=== PATIENT | female | born 1960 | race African-American/Black ===

== ENCOUNTER 2020-12-28 10:40 | Emergency (ER) | payer OTHER ==
[~2020-12-28] VITALS: Ht 172.7 cm; Wt 99.0 kg
[2020-12-28 13:58] LABS: HEMATOCRIT. 33.9 % (36.0-48.0); HEMOGLOBIN. 11.8 g/dL (12.0-16.0); MEAN CORPUSCULAR HEMOGLOBIN 27.7 pg (28.0-32.0); MEAN CORPUSCULAR VOLUME 79.6 fL (81.0-99.0); MEAN PLATELET VOLUME 8.2 fl (7.4-10.4); PLATELET 301 x1000/uL (130-400); RED BLOOD CELL COUNT 4.26 mill/uL (4.2-5.4); RED CELL DISTRIBUTION WIDTH 13.8 % (11.6-14.6)
[2020-12-28 14:04] LABS: CHLORIDE 103 mEq/L (98-107)
[2020-12-28 14:12] LABS: CLARITY URINE CLEAR (CLEAR); COLOR URINE YELLOW (YELLOW); KETONES URINE NEGATIVE (NEGATIVE); LEUKOCYTE ESTERASE URINE NEGATIVE (NEGATIVE); NITRITE URINE NEGATIVE (NEGATIVE); OCCULT BLOOD URINE NEGATIVE (NEGATIVE); PROTEIN URINE NEGATIVE (NEGATIVE); SPECIFIC GRAVITY URINE 1.014 (1.005-1.030); UROBILINOGEN URINE 0.2 E.U./dL (0.2-1.0)
[2020-12-28 14:27] LABS: PLATELET ESTIMATE NORMAL
[2020-12-28] MEDS ORDERED: POTASSIUM CHLORIDE 20MEQ TABLET SR PO ONE (15:00)
[2020-12-28 15:51] LABS: PARTIAL THROMBOPLASTIN TIME 28.8 sec (23.4-31.0); PROTHROMBIN TIME 10.9 sec (9.6-11.0)
[2020-12-28] MEDS ORDERED: AZITHROMYCIN 500 MG in DEXT 5% WATER 250 ML IV ONE (16:00)
[2020-12-28] MEDS ORDERED: CEFTRIAXONE 2 G PREMIX 50 ML IV ONE (16:00)
[2020-12-28 19:00] VITALS: BP 140/65
== END 2020-12-28 19:58 | disposition short-term general hospital (02) ==
LOC: ER 10:50
DX: J18.9 Pneumonia, unspecified organism (principal); E87.6 Hypokalemia; R91.8 Other nonspecific abnormal finding of lung field; I10 Essential (primary) hypertension; Z20.822 Contact with and (suspected) exposure to COVID-19
CPT/HCPCS: 36415; 71045; 71260; 80053; 81003; 83880; 84484; 85025; 85610; 85730; 87040; 87086; 93005; 96365; 96366; 96368; 99285; C9803; J0456; J0696; J7060; U0003; U0005

== ENCOUNTER 2021-12-31 10:18 | Inpatient (IN) | payer MEDICAID, OTHER ==
[~2021-12-31] VITALS: Ht 172.7 cm; Wt 110.2 kg
[2021-12-31] MEDS ORDERED: ALBUTEROL (0.083%) 2.5MG/3ML NEB HHN STA (10:47)
[2021-12-31 11:03] LABS: BASOPHILS % 0.8 % (0.0-2.0); EOSINOPHILS % 2.6 % (0.0-5.0); HEMATOCRIT. 44.5 % (36.0-48.0); HEMOGLOBIN. 14.6 g/dL (12.0-16.0); LYMPHOCYTES % 27.7 % (20.0-50.0); MEAN CORPUSCULAR HEMOGLOBIN 25.4 pg (28.0-32.0); MEAN CORPUSCULAR VOLUME 77.5 fL (81.0-99.0); MEAN PLATELET VOLUME 7.9 fl (7.4-10.4); MONOCYTES % 8.9 % (2.0-8.0); PLATELET 366 x1000/uL (130-400); RED BLOOD CELL COUNT 5.74 mill/uL (4.2-5.4); RED CELL DISTRIBUTION WIDTH 15.9 % (11.6-14.6)
[2021-12-31] MEDS ORDERED: AZITHROMYCIN 500MG/250ML 250 ML IV ONE (11:30)
[2021-12-31] MEDS ORDERED: CEFTRIAXONE 1 G PREMIX 50 ML IV ONE (11:30)
[2021-12-31 11:35] LABS: CHLORIDE 106 mEq/L (98-107)
[2021-12-31 11:46] LABS: BG BASE EXCESS 1.8 mmol/L (-2.0-2.0); BG CARBOXYHEMOGLOBIN 0.8 % (0.5-1.5); BG DEOXYHEMOGLOBIN 6.9 % (0.0-5.0); BG FRACTION INSPIRED OXYGEN 44; BG HCO3 ACT 26.8 mmol/L (22.0-26.0); BG METHEMOGLOBIN 0.3 % (0.0-1.5); BG PCO2 43.1 mmHg (35.0-45.0); BG PH 7.411 (7.350-7.450); BG SAMPLE SITE RIGHT BRACHIAL; BG TOTAL HEMOGLOBIN 15.1 g/dL (12.0-18.0); BG VENT MODE NASAL CANNULA
[2021-12-31 13:27] LABS: CLARITY URINE CLEAR (CLEAR); COLOR URINE YELLOW (YELLOW); KETONES URINE NEGATIVE (NEGATIVE); LEUKOCYTE ESTERASE URINE NEGATIVE (NEGATIVE); NITRITE URINE NEGATIVE (NEGATIVE); OCCULT BLOOD URINE NEGATIVE (NEGATIVE); PROTEIN URINE NEGATIVE (NEGATIVE); SPECIFIC GRAVITY URINE 1.008 (1.005-1.030); UROBILINOGEN URINE 0.2 E.U./dL (0.2-1.0)
[2021-12-31 16:10] VITALS: BP 134/88
[2021-12-31] MEDS ORDERED: CEFTRIAXONE 1 G PREMIX 50 ML IV SCH (16:30)
[2021-12-31] MEDS ORDERED: IPRATROPIUM/ALBUTEROL 0.5-3(2.5)MG/3ML NEB HHN PRN (16:30)
[2021-12-31 16:35] VITALS: BP 134/88
[2021-12-31] MEDS ORDERED: CEFTRIAXONE 1,000 MG in DEXTROSE 5% WATER 50 ML IV SCH (17:00)
[2021-12-31] MEDS ORDERED: AMLO10TA80 PO (17:35)
[2021-12-31] MEDS ORDERED: ATEN-42 PO (17:35)
[2021-12-31] MEDS ORDERED: IOHEXOL-300 100 ML BOTTLE ONE (20:02)
[2022-01-01] VITALS: BP 142/79
[2022-01-01 04:00] VITALS: BP 132/51
[2022-01-01 07:59] VITALS: BP 131/62
[2022-01-01] MEDS: AMLODIPINE 10MG TABLET PO SCH (08:38)
[2022-01-01] MEDS: ATENOLOL 25MG TABLET PO SCH (08:39)
[2022-01-01] MEDS: AZITHROMYCIN 500 MG in DEXT 5% WATER 250 ML IV SCH (10:39)
[2022-01-01 11:46] VITALS: BP 135/68
[2022-01-01] MEDS: CEFTRIAXONE 1,000 MG in DEXTROSE 5% WATER 50 ML IV SCH (12:46)
[2022-01-01] MEDS ORDERED: IPRATROPIUM/ALBUTEROL 0.5-3(2.5)MG/3ML NEB HHN PRN (14:30)
[2022-01-01] MEDS ORDERED: SODIUM CHLORIDE 10% FOR INH 15ML VIAL NEB INH SCH (15:00)
[2022-01-01 16:00] VITALS: BP 132/74
[2022-01-01 20:00] VITALS: BP 128/73
[2022-01-01 20:22] LABS: PROTHROMBIN TIME 10.9 sec (9.6-11.0)
[2022-01-01] MEDS: IPRATROPIUM/ALBUTEROL 0.5-3(2.5)MG/3ML NEB HHN SCH (21:15)
[2022-01-01] MEDS: GUAIFENESIN 600MG ER TABLET PO SCH (21:54)
[2022-01-01] MEDS: FLUTICASONE PROPIONATE 50MCG/SPRAY BOTTLE BOTHNSTRLS SCH (22:01)
[2022-01-02] VITALS: BP 108/63
[2022-01-02] MEDS: IPRATROPIUM/ALBUTEROL 0.5-3(2.5)MG/3ML NEB HHN SCH ×4 (02:16→20:57)
[2022-01-02 04:00] VITALS: BP 105/39
[2022-01-02 08:00] VITALS: BP 128/61
[2022-01-02] MEDS: GUAIFENESIN 600MG ER TABLET PO SCH (10:46)
[2022-01-02] MEDS: FLUTICASONE PROPIONATE 50MCG/SPRAY BOTTLE BOTHNSTRLS SCH ×2 (10:46→20:31)
[2022-01-02] MEDS: AMLODIPINE 10MG TABLET PO SCH (10:47)
[2022-01-02] MEDS: ATENOLOL 25MG TABLET PO SCH (10:48)
[2022-01-02 12:00] VITALS: BP 119/67
[2022-01-02] MEDS: AZITHROMYCIN 500 MG in DEXT 5% WATER 250 ML IV SCH (12:46)
[2022-01-02] MEDS: CEFTRIAXONE 1,000 MG in DEXTROSE 5% WATER 50 ML IV SCH (14:46)
[2022-01-02 16:00] VITALS: BP 116/65
[2022-01-02 20:00] VITALS: BP 119/63
[2022-01-03] VITALS (7 sets, daily range): BP systolic 106–143; BP diastolic 44–76
[2022-01-03] MEDS: ACETAMINOPHEN 325MG TABLET PO PRN ×2 (02:22→18:07)
[2022-01-03] MEDS: ACETYLCYSTEINE 100MG/ML 10% VIAL 4ML INH SCH ×3 (02:55→16:27)
[2022-01-03] MEDS: IPRATROPIUM/ALBUTEROL 0.5-3(2.5)MG/3ML NEB HHN SCH ×5 (02:57→20:19)
[2022-01-03] MEDS: ATENOLOL 25MG TABLET PO SCH (09:20)
[2022-01-03] MEDS: AMLODIPINE 10MG TABLET PO SCH (09:21)
[2022-01-03] MEDS: FLUTICASONE PROPIONATE 50MCG/SPRAY BOTTLE BOTHNSTRLS SCH ×2 (09:21→21:52)
[2022-01-03] MEDS: AZITHROMYCIN 500 MG in DEXT 5% WATER 250 ML IV SCH (12:28)
[2022-01-03] MEDS: CEFTRIAXONE 1,000 MG in DEXTROSE 5% WATER 50 ML IV SCH (14:01)
[2022-01-03 17:01] LABS: BASOPHILS % 0.6 % (0.0-2.0); EOSINOPHILS % 2.9 % (0.0-5.0); HEMATOCRIT. 44.8 % (36.0-48.0); HEMOGLOBIN. 14.4 g/dL (12.0-16.0); LYMPHOCYTES % 24.9 % (20.0-50.0); MEAN CORPUSCULAR HEMOGLOBIN 25.3 pg (28.0-32.0); MEAN CORPUSCULAR VOLUME 78.8 fL (81.0-99.0); MONOCYTES % 8.5 % (2.0-8.0); NEUTROPHILS % 63.1 % (40.0-76.0); PLATELET 319 x1000/uL (130-400); RED BLOOD CELL COUNT 5.69 mill/uL (4.2-5.4); RED CELL DISTRIBUTION WIDTH 15.4 % (11.6-14.6)
[2022-01-03 17:24] LABS: CHLORIDE 103 mEq/L (98-107)
[2022-01-03] MEDS: ZOLPIDEM TARTRATE 5MG TABLET PO PRN (23:46)
[2022-01-04] MEDS: ACETYLCYSTEINE 100MG/ML 10% VIAL 4ML INH SCH ×2 (01:01→01:08)
[2022-01-04] MEDS: IPRATROPIUM/ALBUTEROL 0.5-3(2.5)MG/3ML NEB HHN SCH ×4 (01:04→20:50)
[2022-01-04 04:30] VITALS: BP 119/61
[2022-01-04 08:11] VITALS: BP 127/77
[2022-01-04] MEDS: AMLODIPINE 10MG TABLET PO SCH (09:00)
[2022-01-04] MEDS: ATENOLOL 25MG TABLET PO SCH (09:00)
[2022-01-04] MEDS: AZITHROMYCIN 500 MG in DEXT 5% WATER 250 ML IV SCH (10:00)
[2022-01-04] MEDS: FLUTICASONE PROPIONATE 50MCG/SPRAY BOTTLE BOTHNSTRLS SCH (10:03)
[2022-01-04 12:00] VITALS: BP 125/70
[2022-01-04 16:00] VITALS: BP 120/72
[2022-01-04] MEDS: CEFTRIAXONE 1,000 MG in DEXTROSE 5% WATER 50 ML IV SCH (16:33)
[2022-01-04] MEDS: ACETAMINOPHEN 325MG TABLET PO PRN ×2 (18:48→22:16)
[2022-01-04 20:00] VITALS: BP 131/81
[2022-01-04] MEDS: ZOLPIDEM TARTRATE 5MG TABLET PO PRN (22:16)
[2022-01-05] VITALS (27 sets, daily range): BP systolic 101–168; BP diastolic 51–91
[2022-01-05 06:41] LABS: PARTIAL THROMBOPLASTIN TIME 29.6 sec (23.4-31.0); PROTHROMBIN TIME 10.9 sec (9.6-11.0)
[2022-01-05 06:58] LABS: BASOPHILS % 0.5 % (0.0-2.0); EOSINOPHILS % 3.9 % (0.0-5.0); HEMATOCRIT. 40.2 % (36.0-48.0); HEMOGLOBIN. 13.1 g/dL (12.0-16.0); MEAN CORPUSCULAR HEMOGLOBIN 25.5 pg (28.0-32.0); MEAN CORPUSCULAR VOLUME 78.2 fL (81.0-99.0); MONOCYTES % 10.7 % (2.0-8.0); NEUTROPHILS % 57.9 % (40.0-76.0); PLATELET 300 x1000/uL (130-400); RED BLOOD CELL COUNT 5.14 mill/uL (4.2-5.4); RED CELL DISTRIBUTION WIDTH 15.1 % (11.6-14.6)
[2022-01-05 07:18] LABS: CHLORIDE 106 mEq/L (98-107)
[2022-01-05] MEDS: ACETAMINOPHEN 325MG TABLET PO PRN (07:42)
[2022-01-05] MEDS: IPRATROPIUM/ALBUTEROL 0.5-3(2.5)MG/3ML NEB HHN SCH ×4 (08:17→20:23)
[2022-01-05] MEDS: ACETYLCYSTEINE 100MG/ML 10% VIAL 4ML INH SCH ×2 (08:17→15:00)
[2022-01-05] MEDS: AMLODIPINE 10MG TABLET PO SCH (09:00)
[2022-01-05] MEDS: ATENOLOL 25MG TABLET PO SCH (09:00)
[2022-01-05] MEDS ORDERED: POLYMYXIN B SULFATE 500000 UNITS/VIAL ONE (12:26)
[2022-01-05] MEDS ORDERED: BUPIVACAINE HCL/PF 0.5% (5MG/ML) 10ML ONE (12:27)
[2022-01-05] MEDS: CEFTRIAXONE 1,000 MG in DEXTROSE 5% WATER 50 ML IV SCH (13:12)
[2022-01-05] MEDS ORDERED: SKIN ADHESIVE 0.7 GM EA TOP ONE (13:49)
[2022-01-05] MEDS ORDERED: BUPIVACAINE HCL/PF 0.25% (2.5MG/ML) 10ML ONE (13:50)
[2022-01-05] MEDS ORDERED: ONDANSETRON HCL 4MG/2ML INJ ONE (14:45)
[2022-01-05] MEDS ORDERED: ROCURONIUM BROMIDE 10MG/ML VIAL 5ML IV ONE (14:45)
[2022-01-05] MEDS ORDERED: SUCCINYLCHOLINE CHLORIDE 200MG/10ML IV ONE (14:45)
[2022-01-05] MEDS ORDERED: DEXAMETHASONE 4MG/ML 1ML VIAL ONE (14:45)
[2022-01-05] MEDS ORDERED: LIDOCAINE HCL 1% 10 MG/ML 10ML VIAL ONE (14:45)
[2022-01-05] MEDS ORDERED: PROPOFOL 200MG/20ML VIAL IV ONE (14:46)
[2022-01-05] MEDS ORDERED: NEOSTIGMINE METHYLSULFATE 1MG/ML 10 ML VIAL ONE (14:46)
[2022-01-05] MEDS ORDERED: GLYCOPYRROLATE 0.2 MG/ML 2ML VIAL ONE ×2 (14:46)
[2022-01-05] MEDS ORDERED: FENTANYL CITRATE/PF 50MCG/ML 2ML VIAL ONE (14:47)
[2022-01-05] MEDS ORDERED: MIDAZOLAM HCL 2 MG/2 ML VIAL ONE (14:47)
[2022-01-05] MEDS: PROPOFOL 10MG/ML 100ML 100 ML IV PRN ×2 (16:17→21:24)
[2022-01-05 17:07] LABS: BG CARBOXYHEMOGLOBIN 0.2 % (0.5-1.5); BG DEOXYHEMOGLOBIN 0.6 % (0.0-5.0); BG FRACTION INSPIRED OXYGEN 100; BG HCO3 ACT 20.9 mmol/L (22.0-26.0); BG METHEMOGLOBIN 0.1 % (0.0-1.5); BG OXYGEN SATURATION 99.4 % (92.0-98.5); BG OXYHEMOGLOBIN 99.1 % (94.0-97.0); BG PCO2 37.7 mmHg (35.0-45.0); BG PH 7.362 (7.350-7.450); BG PO2 223.7 mmHg (75.0-100.0); BG SAMPLE SITE LEFT RADIAL; BG TOTAL HEMOGLOBIN 14.4 g/dL (12.0-18.0); BG VENT MODE VENT - AC
[2022-01-05] MEDS: METHYLPREDNISOLONE SOD SUCC 125 MG/2 ML VIAL IV SCH (21:09)
[2022-01-05] MEDS: DEXT 5%/0.45% NACL KCL 20MEQ/L 1,000 ML IV SCH (21:09)
[2022-01-05] MEDS ORDERED: FENTANYL 2500MCG/250ML PMX 250 ML IV ONE (22:45)
[2022-01-06] VITALS (91 sets, daily range): BP systolic 102–160; BP diastolic 50–86
[2022-01-06] MEDS: PROPOFOL 10MG/ML 100ML 100 ML IV PRN ×6 (01:05→22:08)
[2022-01-06] MEDS: ACETYLCYSTEINE 100MG/ML 10% VIAL 4ML INH SCH ×3 (02:15→14:44)
[2022-01-06] MEDS: IPRATROPIUM/ALBUTEROL 0.5-3(2.5)MG/3ML NEB HHN SCH ×4 (02:15→19:48)
[2022-01-06] MEDS: DEXT 5%/0.45% NACL KCL 20MEQ/L 1,000 ML IV SCH ×2 (06:48→17:22)
[2022-01-06] MEDS: METHYLPREDNISOLONE SOD SUCC 125 MG/2 ML VIAL IV SCH ×3 (06:49→21:31)
[2022-01-06] MEDS: AMLODIPINE 10MG TABLET PO SCH (08:41)
[2022-01-06] MEDS: ATENOLOL 25MG TABLET PO SCH (08:42)
[2022-01-06 08:50] LABS: BG BASE EXCESS -3.4 mmol/L (-2.0-2.0); BG CARBOXYHEMOGLOBIN 0.2 % (0.5-1.5); BG DEOXYHEMOGLOBIN 6.8 % (0.0-5.0); BG FRACTION INSPIRED OXYGEN 50; BG HCO3 ACT 22.6 mmol/L (22.0-26.0); BG METHEMOGLOBIN 0.3 % (0.0-1.5); BG OXYGEN SATURATION 93.2 % (92.0-98.5); BG OXYHEMOGLOBIN 92.7 % (94.0-97.0); BG PH 7.328 (7.350-7.450); BG PO2 72.9 mmHg (75.0-100.0); BG SAMPLE SITE LEFT RADIAL; BG TOTAL HEMOGLOBIN 12.8 g/dL (12.0-18.0); BG VENT MODE VENT - AC
[2022-01-06] MEDS ORDERED: DILTIAZEM HCL 5MG/ML 5ML VIAL IV PRN (12:00)
[2022-01-06] MEDS: CEFTRIAXONE 1,000 MG in DEXTROSE 5% WATER 50 ML IV SCH (12:36)
[2022-01-06 18:30] LABS: HEMATOCRIT. 39.3 % (36.0-48.0); HEMOGLOBIN. 12.7 g/dL (12.0-16.0); MEAN CORPUSCULAR HEMOGLOBIN 25.3 pg (28.0-32.0); MEAN CORPUSCULAR VOLUME 78.6 fL (81.0-99.0); MEAN PLATELET VOLUME 8.2 fl (7.4-10.4); PLATELET 295 x1000/uL (130-400); RED CELL DISTRIBUTION WIDTH 15.5 % (11.6-14.6)
[2022-01-06 18:43] LABS: CHLORIDE 105 mEq/L (98-107)
[2022-01-06 23:12] LABS: PLATELET ESTIMATE NORMAL
[2022-01-07] VITALS (76 sets, daily range): BP systolic 117–158; BP diastolic 51–110
[2022-01-07] MEDS: ACETYLCYSTEINE 100MG/ML 10% VIAL 4ML INH SCH ×4 (02:03→20:38)
[2022-01-07] MEDS: IPRATROPIUM/ALBUTEROL 0.5-3(2.5)MG/3ML NEB HHN SCH ×4 (02:03→20:38)
[2022-01-07] MEDS: DEXT 5%/0.45% NACL KCL 20MEQ/L 1,000 ML IV SCH ×2 (03:08→12:02)
[2022-01-07] MEDS: PROPOFOL 10MG/ML 100ML 100 ML IV PRN ×4 (03:09→20:57)
[2022-01-07] MEDS: METHYLPREDNISOLONE SOD SUCC 125 MG/2 ML VIAL IV SCH ×3 (06:38→21:00)
[2022-01-07 07:52] LABS: BG BASE EXCESS -0.1 mmol/L (-2.0-2.0); BG CARBOXYHEMOGLOBIN 0.3 % (0.5-1.5); BG DEOXYHEMOGLOBIN 4.7 % (0.0-5.0); BG FRACTION INSPIRED OXYGEN 50; BG HCO3 ACT 25.4 mmol/L (22.0-26.0); BG METHEMOGLOBIN 0.2 % (0.0-1.5); BG OXYGEN SATURATION 95.3 % (92.0-98.5); BG OXYHEMOGLOBIN 94.8 % (94.0-97.0); BG PCO2 44.6 mmHg (35.0-45.0); BG PH 7.374 (7.350-7.450); BG PO2 79.7 mmHg (75.0-100.0); BG SAMPLE SITE RIGHT RADIAL; BG TOTAL HEMOGLOBIN 13.9 g/dL (12.0-18.0); BG VENT MODE VENT - AC
[2022-01-07] MEDS: ATENOLOL 25MG TABLET PO SCH (08:55)
[2022-01-07] MEDS: AMLODIPINE 10MG TABLET PO SCH (08:55)
[2022-01-07] MEDS: FENTANYL 2500MCG/250ML PMX 250 ML IV PRN (11:46)
[2022-01-07] MEDS: CEFTRIAXONE 1,000 MG in DEXTROSE 5% WATER 50 ML IV SCH (14:52)
[2022-01-08] VITALS (70 sets, daily range): BP systolic 131–187; BP diastolic 63–113
[2022-01-08] MEDS: IPRATROPIUM/ALBUTEROL 0.5-3(2.5)MG/3ML NEB HHN SCH ×3 (01:21→21:19)
[2022-01-08] MEDS: DEXT 5%/0.45% NACL KCL 20MEQ/L 1,000 ML IV SCH ×3 (02:37→18:49)
[2022-01-08] MEDS: PROPOFOL 10MG/ML 100ML 100 ML IV PRN ×4 (02:37→23:01)
[2022-01-08] MEDS: METHYLPREDNISOLONE SOD SUCC 125 MG/2 ML VIAL IV SCH ×3 (05:12→22:23)
[2022-01-08 07:49] LABS: BG BASE EXCESS 0.5 mmol/L (-2.0-2.0); BG CARBOXYHEMOGLOBIN 0.6 % (0.5-1.5); BG DEOXYHEMOGLOBIN 3.1 % (0.0-5.0); BG FRACTION INSPIRED OXYGEN 50; BG HCO3 ACT 23.4 mmol/L (22.0-26.0); BG OXYGEN SATURATION 96.8 % (92.0-98.5); BG OXYHEMOGLOBIN 95.3 % (94.0-97.0); BG PCO2 32.8 mmHg (35.0-45.0); BG PH 7.472 (7.350-7.450); BG PO2 87.4 mmHg (75.0-100.0); BG SAMPLE SITE LEFT RADIAL; BG TOTAL HEMOGLOBIN 13.8 g/dL (12.0-18.0); BG VENT MODE VENT - AC
[2022-01-08] MEDS: AMLODIPINE 10MG TABLET PO SCH (08:32)
[2022-01-08] MEDS: ATENOLOL 25MG TABLET PO SCH (08:33)
[2022-01-08] MEDS: HYDRALAZINE 20MG/ML VIAL IV PRN ×2 (08:38→18:48)
[2022-01-08] MEDS ORDERED: HYDRALAZINE 20MG/ML VIAL IV NR (12:00)
[2022-01-08] MEDS ORDERED: POLYMYXIN B SULFATE 500000 UNITS/VIAL ONE (13:00)
[2022-01-08] MEDS ORDERED: BUPIVACAINE HCL/PF 0.25% (2.5MG/ML) 10ML ONE (13:01)
[2022-01-08] MEDS ORDERED: SKIN ADHESIVE 0.7 GM EA TOP ONE (13:01)
[2022-01-08] MEDS ORDERED: MIDAZOLAM HCL 2 MG/2 ML VIAL ONE (13:40)
[2022-01-08] MEDS ORDERED: FENTANYL CITRATE/PF 50MCG/ML 2ML VIAL ONE ×2 (13:40→17:25)
[2022-01-08] MEDS ORDERED: ROCURONIUM BROMIDE 10MG/ML VIAL 5ML IV ONE ×3 (13:42→17:49)
[2022-01-08] MEDS ORDERED: PROPOFOL 200MG/20ML VIAL IV ONE (13:42)
[2022-01-08] MEDS ORDERED: DEXAMETHASONE 4MG/ML 1ML VIAL ONE (14:09)
[2022-01-08] MEDS ORDERED: ONDANSETRON HCL 4MG/2ML INJ ONE (14:09)
[2022-01-08] MEDS: CEFTRIAXONE 1,000 MG in DEXTROSE 5% WATER 50 ML IV SCH (14:24)
[2022-01-08] MEDS ORDERED: CLONIDINE HCL 0.2MG/24HR PATCH TD NR (15:30)
[2022-01-08] MEDS ORDERED: GLYCOPYRROLATE 0.2 MG/ML 2ML VIAL ONE ×4 (15:31→15:32)
[2022-01-08] MEDS ORDERED: NEOSTIGMINE METHYLSULFATE 1MG/ML 10 ML VIAL ONE (17:07)
[2022-01-09] VITALS (92 sets, daily range): BP systolic 124–176; BP diastolic 50–93
[2022-01-09] MEDS: IPRATROPIUM/ALBUTEROL 0.5-3(2.5)MG/3ML NEB HHN SCH ×4 (00:31→19:45)
[2022-01-09] MEDS: FENTANYL 2500MCG/250ML PMX 250 ML IV PRN ×2 (01:55→23:14)
[2022-01-09] MEDS: PROPOFOL 10MG/ML 100ML 100 ML IV PRN ×6 (02:03→17:25)
[2022-01-09] MEDS: METHYLPREDNISOLONE SOD SUCC 125 MG/2 ML VIAL IV SCH ×3 (05:58→21:04)
[2022-01-09] MEDS: DEXT 5%/0.45% NACL KCL 20MEQ/L 1,000 ML IV SCH ×2 (05:58→14:12)
[2022-01-09 07:14] LABS: HEMATOCRIT. 39.2 % (36.0-48.0); HEMOGLOBIN. 12.8 g/dL (12.0-16.0); MEAN CORPUSCULAR HEMOGLOBIN 25.5 pg (28.0-32.0); MEAN CORPUSCULAR VOLUME 77.7 fL (81.0-99.0); MEAN PLATELET VOLUME 8.1 fl (7.4-10.4); PLATELET 293 x1000/uL (130-400); RED BLOOD CELL COUNT 5.04 mill/uL (4.2-5.4); RED CELL DISTRIBUTION WIDTH 15.6 % (11.6-14.6)
[2022-01-09 07:27] LABS: CHLORIDE 105 mEq/L (98-107)
[2022-01-09] MEDS: ATENOLOL 25MG TABLET PO SCH (08:09)
[2022-01-09] MEDS: AMLODIPINE 10MG TABLET PO SCH (08:09)
[2022-01-09] MEDS: CEFTRIAXONE 1,000 MG in DEXTROSE 5% WATER 50 ML IV SCH (14:13)
[2022-01-09 14:47] LABS: PLATELET ESTIMATE NORMAL
[2022-01-09] MEDS ORDERED: MIDAZOLAM HCL 100 MG in SODIUM CHLORIDE 0.9% 80 ML IV PRN (19:45)
[2022-01-09] MEDS: MIDAZOLAM 100MG/100ML PMX 100 ML IV PRN (20:50)
[2022-01-10] VITALS (85 sets, daily range): BP systolic 131–175; BP diastolic 61–121
[2022-01-10] MEDS: DEXT 5%/0.45% NACL KCL 20MEQ/L 1,000 ML IV SCH ×3 (01:41→22:02)
[2022-01-10] MEDS: IPRATROPIUM/ALBUTEROL 0.5-3(2.5)MG/3ML NEB HHN SCH ×3 (01:43→14:04)
[2022-01-10] MEDS: METHYLPREDNISOLONE SOD SUCC 125 MG/2 ML VIAL IV SCH ×3 (05:26→22:02)
[2022-01-10 06:14] LABS: HEMATOCRIT. 37.3 % (36.0-48.0); MEAN CORPUSCULAR VOLUME 77.7 fL (81.0-99.0); MEAN PLATELET VOLUME 8.3 fl (7.4-10.4); PLATELET 260 x1000/uL (130-400); RED CELL DISTRIBUTION WIDTH 15.4 % (11.6-14.6)
[2022-01-10 06:21] LABS: CHLORIDE 105 mEq/L (98-107)
[2022-01-10] MEDS: MIDAZOLAM 100MG/100ML PMX 100 ML IV PRN ×2 (06:50→17:52)
[2022-01-10] MEDS: AMLODIPINE 10MG TABLET PO SCH (09:00)
[2022-01-10] MEDS: ATENOLOL 25MG TABLET PO SCH (09:00)
[2022-01-10 13:37] LABS: PLATELET ESTIMATE NORMAL
[2022-01-10] MEDS: CEFTRIAXONE 1,000 MG in DEXTROSE 5% WATER 50 ML IV SCH (14:29)
[2022-01-10 17:04] LABS: PARTIAL THROMBOPLASTIN TIME 21.5 sec (23.4-31.0); PROTHROMBIN TIME 11.2 sec (9.6-11.0)
[2022-01-10] MEDS: HYDRALAZINE 20MG/ML VIAL IV PRN (18:41)
[2022-01-10] MEDS: FENTANYL CITRATE/PF 2,500 MCG in SODIUM CHLORIDE 0.9% 200 ML IV PRN (20:41)
[2022-01-11] VITALS (77 sets, daily range): BP systolic 129–186; BP diastolic 59–88
[2022-01-11] MEDS: IPRATROPIUM/ALBUTEROL 0.5-3(2.5)MG/3ML NEB HHN SCH ×4 (01:01→20:31)
[2022-01-11] MEDS: METHYLPREDNISOLONE SOD SUCC 125 MG/2 ML VIAL IV SCH ×3 (05:21→21:04)
[2022-01-11] MEDS: MIDAZOLAM 100MG/100ML PMX 100 ML IV PRN (05:22)
[2022-01-11] MEDS: DEXT 5%/0.45% NACL KCL 20MEQ/L 1,000 ML IV SCH ×2 (07:13→20:40)
[2022-01-11] MEDS: AMLODIPINE 10MG TABLET PO SCH (09:00)
[2022-01-11] MEDS: ATENOLOL 25MG TABLET PO SCH (09:00)
[2022-01-11] MEDS: HYDRALAZINE 20MG/ML VIAL IV PRN (09:27)
[2022-01-11 10:36] LABS: BG CARBOXYHEMOGLOBIN 0.4 % (0.5-1.5); BG DEOXYHEMOGLOBIN 2.6 % (0.0-5.0); BG FRACTION INSPIRED OXYGEN 55; BG HCO3 ACT 22.5 mmol/L (22.0-26.0); BG METHEMOGLOBIN 0.3 % (0.0-1.5); BG OXYGEN SATURATION 97.4 % (92.0-98.5); BG OXYHEMOGLOBIN 96.7 % (94.0-97.0); BG PCO2 27.3 mmHg (35.0-45.0); BG PH 7.534 (7.350-7.450); BG PO2 89.3 mmHg (75.0-100.0); BG SAMPLE SITE LEFT RADIAL; BG TOTAL HEMOGLOBIN 13.3 g/dL (12.0-18.0); BG VENT MODE VENT - AC
[2022-01-11] MEDS: MIDAZOLAM HCL 100 MG in SODIUM CHLORIDE 0.9% 100 ML IV PRN (18:17)
[2022-01-11] MEDS: FENTANYL CITRATE/PF 2,500 MCG in SODIUM CHLORIDE 0.9% 200 ML IV PRN (18:18)
[2022-01-12] VITALS (42 sets, daily range): BP systolic 123–162; BP diastolic 56–92
[2022-01-12] MEDS: FENTANYL CITRATE/PF 2,500 MCG in SODIUM CHLORIDE 0.9% 200 ML IV PRN (00:15)
[2022-01-12] MEDS: IPRATROPIUM/ALBUTEROL 0.5-3(2.5)MG/3ML NEB HHN SCH ×4 (01:48→20:22)
[2022-01-12] MEDS: MIDAZOLAM HCL 100 MG in SODIUM CHLORIDE 0.9% 100 ML IV PRN (03:45)
[2022-01-12] MEDS: DEXT 5%/0.45% NACL KCL 20MEQ/L 1,000 ML IV SCH ×3 (03:46→17:49)
[2022-01-12] MEDS: METHYLPREDNISOLONE SOD SUCC 125 MG/2 ML VIAL IV SCH ×3 (05:51→21:20)
[2022-01-12 06:19] LABS: HEMATOCRIT. 36.6 % (36.0-48.0); MEAN CORPUSCULAR HEMOGLOBIN 25.3 pg (28.0-32.0); MEAN CORPUSCULAR VOLUME 77.3 fL (81.0-99.0); MEAN PLATELET VOLUME 8.6 fl (7.4-10.4); PLATELET 219 x1000/uL (130-400); RED BLOOD CELL COUNT 4.73 mill/uL (4.2-5.4); RED CELL DISTRIBUTION WIDTH 15.6 % (11.6-14.6)
[2022-01-12 06:44] LABS: CHLORIDE 108 mEq/L (98-107)
[2022-01-12 07:58] LABS: BG FRACTION INSPIRED OXYGEN 50; BG HCO3 ACT 25.2 mmol/L (22.0-26.0); BG PCO2 38.5 mmHg (35.0-45.0); BG PH 7.433 (7.350-7.450); BG PO2 80.2 mmHg (75.0-100.0); BG SAMPLE SITE RIGHT BRACHIAL; BG VENT MODE VENT - AC
[2022-01-12] MEDS: ATENOLOL 25MG TABLET PO SCH (08:08)
[2022-01-12] MEDS: AMLODIPINE 10MG TABLET PO SCH (08:08)
[2022-01-12 10:06] LABS: PLATELET ESTIMATE NORMAL
[2022-01-12 11:04] LABS: BG BASE EXCESS 0.1 mmol/L (-2.0-2.0); BG CARBOXYHEMOGLOBIN 0.5 % (0.5-1.5); BG DEOXYHEMOGLOBIN 3.5 % (0.0-5.0); BG FRACTION INSPIRED OXYGEN 50; BG METHEMOGLOBIN 0.4 % (0.0-1.5); BG OXYGEN SATURATION 96.5 % (92.0-98.5); BG OXYHEMOGLOBIN 95.6 % (94.0-97.0); BG PCO2 46.6 mmHg (35.0-45.0); BG PH 7.364 (7.350-7.450); BG PO2 92.6 mmHg (75.0-100.0); BG SAMPLE SITE LEFT RADIAL; BG VENT MODE VENT - CPAP
[2022-01-12] MEDS ORDERED: PHENOL/SODIUM PHENOLATE 1.4% SRPAY 177ML MM PRN (12:00)
[2022-01-12] MEDS ORDERED: DILTIAZEM HCL 5MG/ML 5ML VIAL IV PRN (14:15)
[2022-01-12] MEDS: DILTIAZEM HCL 60MG TABLET PO SCH (17:49)
[2022-01-12] MEDS ORDERED: DIPHENHYDRAMINE 50MG/ML VIAL IV PRN (20:00)
[2022-01-12] MEDS: ACETAMINOPHEN 325MG TABLET PO PRN (21:34)
[2022-01-13] VITALS (20 sets, daily range): BP systolic 120–169; BP diastolic 50–85
[2022-01-13] MEDS: DILTIAZEM HCL 60MG TABLET PO SCH ×2 (00:19→05:34)
[2022-01-13] MEDS: ZOLPIDEM TARTRATE 5MG TABLET PO PRN ×2 (00:19→22:42)
[2022-01-13] MEDS: IPRATROPIUM/ALBUTEROL 0.5-3(2.5)MG/3ML NEB HHN SCH ×3 (01:50→15:50)
[2022-01-13] MEDS ORDERED: POTASSIUM CHLORIDE INJ 20 MEQ in DEXT 5%/0.45% NACL 1000ML 1,000 ML IV SCH (02:00)
[2022-01-13] MEDS: METHYLPREDNISOLONE SOD SUCC 125 MG/2 ML VIAL IV SCH ×2 (05:34→14:26)
[2022-01-13] MEDS: ACETAMINOPHEN 325MG TABLET PO PRN ×3 (10:04→22:33)
[2022-01-13 10:35] LABS: HEMATOCRIT. 38.5 % (36.0-48.0); HEMOGLOBIN. 12.5 g/dL (12.0-16.0); MEAN CORPUSCULAR HEMOGLOBIN 25.2 pg (28.0-32.0); MEAN CORPUSCULAR VOLUME 77.4 fL (81.0-99.0); MEAN PLATELET VOLUME 8.3 fl (7.4-10.4); PLATELET 234 x1000/uL (130-400); RED BLOOD CELL COUNT 4.97 mill/uL (4.2-5.4); RED CELL DISTRIBUTION WIDTH 15.5 % (11.6-14.6)
[2022-01-13 10:44] LABS: CHLORIDE 105 mEq/L (98-107)
[2022-01-13] MEDS: DILTIAZEM HCL 90MG TABLET PO SCH ×3 (12:00→23:44)
[2022-01-13] MEDS: DEXT 5%/0.45% NACL KCL 20MEQ/L 1,000 ML IV SCH ×2 (12:00→22:36)
[2022-01-13 14:01] LABS: NUCLEATED RED BLOOD CELLS 1 /100 WBC; PLATELET ESTIMATE NORMAL
[2022-01-13] MEDS: METHYLPREDNISOLONE SOD SUCC 40 MG/ML VIAL IV SCH (17:58)
[2022-01-14] VITALS (11 sets, daily range): BP systolic 102–159; BP diastolic 65–88
[2022-01-14] MEDS: DILTIAZEM HCL 90MG TABLET PO SCH ×4 (05:18→23:19)
[2022-01-14] MEDS: DEXT 5%/0.45% NACL KCL 20MEQ/L 1,000 ML IV SCH ×2 (05:19→16:45)
[2022-01-14] MEDS: IPRATROPIUM/ALBUTEROL 0.5-3(2.5)MG/3ML NEB HHN SCH ×2 (06:51→20:45)
[2022-01-14] MEDS: ONDANSETRON HCL 4MG/2ML INJ IV PRN (06:53)
[2022-01-14] MEDS: METHYLPREDNISOLONE SOD SUCC 40 MG/ML VIAL IV SCH ×2 (09:00→16:46)
[2022-01-14] MEDS: ENOXAPARIN 120MG/0.8ML SYR SUBCUT SCH ×2 (11:08→23:19)
[2022-01-14 12:34] LABS: HEMATOCRIT. 39.4 % (36.0-48.0); HEMOGLOBIN. 12.8 g/dL (12.0-16.0); MEAN CORPUSCULAR HEMOGLOBIN 25.1 pg (28.0-32.0); MEAN CORPUSCULAR VOLUME 77.7 fL (81.0-99.0); PLATELET 283 x1000/uL (130-400); RED BLOOD CELL COUNT 5.07 mill/uL (4.2-5.4); RED CELL DISTRIBUTION WIDTH 15.3 % (11.6-14.6)
[2022-01-14 12:38] LABS: CHLORIDE 107 mEq/L (98-107)
[2022-01-14] MEDS ORDERED: GADOTERATE MEGLUMINE 5 MMOL/10 ML VIAL IV ONE (16:06)
[2022-01-14] MEDS: PROPAFENONE HCL 150MG TABLET PO SCH ×2 (16:46→23:28)
[2022-01-14 17:08] LABS: PLATELET ESTIMATE NORMAL
[2022-01-14] MEDS: DOCUSATE SODIUM 250MG CAPSULE PO SCH (20:46)
[2022-01-15] VITALS (12 sets, daily range): BP systolic 101–146; BP diastolic 57–105
[2022-01-15] MEDS: IPRATROPIUM/ALBUTEROL 0.5-3(2.5)MG/3ML NEB HHN SCH ×4 (01:25→20:46)
[2022-01-15] MEDS: DEXT 5%/0.45% NACL KCL 20MEQ/L 1,000 ML IV SCH ×3 (04:10→23:38)
[2022-01-15] MEDS: ONDANSETRON HCL 4MG/2ML INJ IV PRN (05:38)
[2022-01-15] MEDS: DILTIAZEM HCL 90MG TABLET PO SCH ×4 (06:35→23:44)
[2022-01-15] MEDS: PROPAFENONE HCL 150MG TABLET PO SCH ×3 (06:36→21:25)
[2022-01-15] MEDS: METHYLPREDNISOLONE SOD SUCC 40 MG/ML VIAL IV SCH ×2 (08:23→17:20)
[2022-01-15] MEDS: DOCUSATE SODIUM 250MG CAPSULE PO SCH ×2 (08:23→17:20)
[2022-01-15] MEDS: ENOXAPARIN 120MG/0.8ML SYR SUBCUT SCH ×2 (08:23→20:37)
[2022-01-15 10:17] LABS: BG BASE EXCESS 7.9 mmol/L (-2.0-2.0); BG CARBOXYHEMOGLOBIN 0.5 % (0.5-1.5); BG DEOXYHEMOGLOBIN 13.8 % (0.0-5.0); BG FRACTION INSPIRED OXYGEN 21; BG HCO3 ACT 31.8 mmol/L (22.0-26.0); BG METHEMOGLOBIN 0.1 % (0.0-1.5); BG OXYGEN SATURATION 86.1 % (92.0-98.5); BG OXYHEMOGLOBIN 85.6 % (94.0-97.0); BG PCO2 41.4 mmHg (35.0-45.0); BG PH 7.503 (7.350-7.450); BG PO2 49.8 mmHg (75.0-100.0); BG SAMPLE SITE LEFT RADIAL; BG TOTAL HEMOGLOBIN 13.8 g/dL (12.0-18.0); BG VENT MODE ROOM AIR
[2022-01-15 11:55] LABS: HEMOGLOBIN. 12.3 g/dL (12.0-16.0); MEAN CORPUSCULAR HEMOGLOBIN 25.2 pg (28.0-32.0); MEAN CORPUSCULAR VOLUME 77.9 fL (81.0-99.0); MEAN PLATELET VOLUME 8.5 fl (7.4-10.4); PLATELET 232 x1000/uL (130-400); RED BLOOD CELL COUNT 4.88 mill/uL (4.2-5.4); RED CELL DISTRIBUTION WIDTH 15.4 % (11.6-14.6)
[2022-01-15 12:00] LABS: CHLORIDE 104 mEq/L (98-107)
[2022-01-15 12:38] LABS: PLATELET ESTIMATE NORMAL
[2022-01-15] MEDS: ACETAMINOPHEN 325MG TABLET PO PRN (16:38)
[2022-01-15] MEDS: CEFEPIME 2,000 MG in DEXT 5% WATER 100 ML IV SCH (17:20)
[2022-01-16] VITALS (11 sets, daily range): BP systolic 90–155; BP diastolic 56–107
[2022-01-16] MEDS: IPRATROPIUM/ALBUTEROL 0.5-3(2.5)MG/3ML NEB HHN SCH ×4 (02:18→21:16)
[2022-01-16 03:34] LABS: CLARITY URINE CLOUDY (CLEAR); COLOR URINE YELLOW (YELLOW); KETONES URINE NEGATIVE (NEGATIVE); LEUKOCYTE ESTERASE URINE TRACE (NEGATIVE); NITRITE URINE NEGATIVE (NEGATIVE); OCCULT BLOOD URINE 3+ (NEGATIVE); PH URINE 5.5 (4.5-8.0); PROTEIN URINE TRACE (NEGATIVE); SPECIFIC GRAVITY URINE 1.021 (1.005-1.030)
[2022-01-16] MEDS: CEFEPIME 2,000 MG in DEXT 5% WATER 100 ML IV SCH ×2 (05:12→17:10)
[2022-01-16] MEDS: PROPAFENONE HCL 150MG TABLET PO SCH ×3 (05:13→20:31)
[2022-01-16] MEDS: DILTIAZEM HCL 90MG TABLET PO SCH ×2 (05:13→13:08)
[2022-01-16] MEDS: METHYLPREDNISOLONE SOD SUCC 40 MG/ML VIAL IV SCH (09:13)
[2022-01-16] MEDS: DOCUSATE SODIUM 250MG CAPSULE PO SCH ×2 (09:14→17:10)
[2022-01-16] MEDS: ENOXAPARIN 120MG/0.8ML SYR SUBCUT SCH (09:14)
[2022-01-16] MEDS: PREDNISONE 20MG TABLET PO SCH (13:08)
[2022-01-16] MEDS: ACETAMINOPHEN 325MG TABLET PO PRN (16:42)
[2022-01-16] MEDS: DILTIAZEM HCL 60MG TABLET PO SCH ×2 (17:09→23:58)
[2022-01-16] MEDS: APIXABAN 5 MG TABLET PO SCH (17:10)
[2022-01-17] VITALS (12 sets, daily range): BP systolic 100–139; BP diastolic 45–80
[2022-01-17] MEDS: IPRATROPIUM/ALBUTEROL 0.5-3(2.5)MG/3ML NEB HHN SCH ×4 (01:18→21:05)
[2022-01-17] MEDS: PROPAFENONE HCL 150MG TABLET PO SCH ×3 (05:21→22:14)
[2022-01-17] MEDS: DILTIAZEM HCL 60MG TABLET PO SCH ×3 (05:21→17:10)
[2022-01-17] MEDS: CEFEPIME 2,000 MG in DEXT 5% WATER 100 ML IV SCH ×2 (05:21→17:09)
[2022-01-17 06:39] LABS: BASOPHILS % 0.1 % (0.0-2.0); EOSINOPHILS % 1.7 % (0.0-5.0); HEMATOCRIT. 32.6 % (36.0-48.0); HEMOGLOBIN. 10.6 g/dL (12.0-16.0); LYMPHOCYTES % 8.8 % (20.0-50.0); MEAN CORPUSCULAR HEMOGLOBIN 25.2 pg (28.0-32.0); MEAN CORPUSCULAR VOLUME 77.6 fL (81.0-99.0); MONOCYTES % 6.5 % (2.0-8.0); NEUTROPHILS % 82.9 % (40.0-76.0); PLATELET 199 x1000/uL (130-400); RED CELL DISTRIBUTION WIDTH 15.2 % (11.6-14.6)
[2022-01-17 06:50] LABS: CHLORIDE 104 mEq/L (98-107)
[2022-01-17] MEDS: PREDNISONE 20MG TABLET PO SCH (08:43)
[2022-01-17] MEDS: DOCUSATE SODIUM 250MG CAPSULE PO SCH ×2 (08:43→17:10)
[2022-01-17] MEDS: APIXABAN 5 MG TABLET PO SCH ×2 (08:43→17:10)
[2022-01-17] MEDS: ACETAMINOPHEN 325MG TABLET PO PRN (12:52)
[2022-01-18] VITALS (11 sets, daily range): BP systolic 94–132; BP diastolic 51–94
[2022-01-18] MEDS: DILTIAZEM HCL 60MG TABLET PO SCH ×5 (00:04→23:52)
[2022-01-18] MEDS: ACETAMINOPHEN 325MG TABLET PO PRN ×2 (00:56→18:03)
[2022-01-18] MEDS: IPRATROPIUM/ALBUTEROL 0.5-3(2.5)MG/3ML NEB HHN SCH ×4 (01:31→20:27)
[2022-01-18] MEDS: PROPAFENONE HCL 150MG TABLET PO SCH ×3 (06:13→20:53)
[2022-01-18] MEDS: CEFEPIME 2,000 MG in DEXT 5% WATER 100 ML IV SCH ×2 (06:14→17:40)
[2022-01-18 06:41] LABS: BASOPHILS % 0.1 % (0.0-2.0); HEMATOCRIT. 33.5 % (36.0-48.0); HEMOGLOBIN. 10.7 g/dL (12.0-16.0); LYMPHOCYTES % 16.1 % (20.0-50.0); MEAN CORPUSCULAR HEMOGLOBIN 24.9 pg (28.0-32.0); MEAN CORPUSCULAR VOLUME 77.9 fL (81.0-99.0); MEAN PLATELET VOLUME 8.5 fl (7.4-10.4); MONOCYTES % 6.1 % (2.0-8.0); NEUTROPHILS % 71.7 % (40.0-76.0); PLATELET 221 x1000/uL (130-400); RED CELL DISTRIBUTION WIDTH 15.1 % (11.6-14.6)
[2022-01-18 07:33] LABS: CHLORIDE 101 mEq/L (98-107)
[2022-01-18] MEDS: DOCUSATE SODIUM 250MG CAPSULE PO SCH ×2 (09:00→16:37)
[2022-01-18] MEDS: PREDNISONE 20MG TABLET PO SCH (09:16)
[2022-01-18] MEDS: APIXABAN 5 MG TABLET PO SCH ×2 (09:16→17:39)
[2022-01-18] MEDS: GUAIFENESIN 200MG/10ML SUGAR FREE UDC PO PRN ×2 (09:17→23:51)
[2022-01-18] MEDS ORDERED: POTASSIUM CHLORIDE 20MEQ TABLET SR PO NR (10:30)
[2022-01-18] MEDS ORDERED: DIGOXIN 250MCG TABLET PO SCH (14:15)
[2022-01-18] MEDS ORDERED: FLOV44 INH (17:01)
[2022-01-18] MEDS ORDERED: ALBU6.7H9 INH (17:01)
[2022-01-19] VITALS: BP 114/49
[2022-01-19] MEDS: IPRATROPIUM/ALBUTEROL 0.5-3(2.5)MG/3ML NEB HHN SCH ×3 (01:28→14:38)
[2022-01-19] MEDS: GUAIFENESIN 200MG/10ML SUGAR FREE UDC PO PRN (03:56)
[2022-01-19 04:00] VITALS: BP_SYST 126; BP_SYST 127; BP_DIAS 58; BP_DIAS 83
[2022-01-19] MEDS: CEFEPIME 2,000 MG in DEXT 5% WATER 100 ML IV SCH (05:17)
[2022-01-19] MEDS: PROPAFENONE HCL 150MG TABLET PO SCH (05:18)
[2022-01-19] MEDS: DILTIAZEM HCL 60MG TABLET PO SCH ×2 (05:18→14:18)
[2022-01-19 08:00] VITALS: BP 102/64
[2022-01-19] MEDS: APIXABAN 5 MG TABLET PO SCH ×2 (08:49→17:35)
[2022-01-19] MEDS: DOCUSATE SODIUM 250MG CAPSULE PO SCH ×2 (08:49→17:00)
[2022-01-19] MEDS: PREDNISONE 20MG TABLET PO SCH (08:49)
[2022-01-19] MEDS ORDERED: APIX5TAB PO (09:43)
[2022-01-19] MEDS ORDERED: ALBU6.7H9 INH (09:43)
[2022-01-19] MEDS ORDERED: DILT300C35 MT (09:43)
[2022-01-19] MEDS ORDERED: FLUT1DIS3 INH (09:43)
[2022-01-19] MEDS ORDERED: IPRA3AMP9 NEB (09:43)
[2022-01-19 12:00] VITALS: BP 114/79
[2022-01-19 12:40] LABS: HEMOGLOBIN. 11.1 g/dL (12.0-16.0); MEAN CORPUSCULAR HEMOGLOBIN 24.8 pg (28.0-32.0); MEAN CORPUSCULAR VOLUME 77.9 fL (81.0-99.0); MEAN PLATELET VOLUME 8.6 fl (7.4-10.4); PLATELET 252 x1000/uL (130-400); RED BLOOD CELL COUNT 4.49 mill/uL (4.2-5.4); RED CELL DISTRIBUTION WIDTH 15.3 % (11.6-14.6)
[2022-01-19 12:49] LABS: CHLORIDE 102 mEq/L (98-107)
[2022-01-19] MEDS: ACETAMINOPHEN 325MG TABLET PO PRN (14:29)
[2022-01-19 14:50] LABS: PLATELET ESTIMATE NORMAL
[2022-01-19 16:54] VITALS: BP 114/79
[2022-01-19] MEDS ORDERED: PROPAFENONE HCL 150MG TABLET PO SCH (17:00)
[2022-01-19 17:36] VITALS: BP 121/79
== END 2022-01-19 19:07 | disposition home or self-care (01) | DRG 120 ==
LOC: ER 10:45 → 6WST 13:09 → EDBEDREQ 13:14 → CANRESERV 15:20 → ENRESERV 15:20 → CVICU 01-05 16:09 → 5EST 01-13 11:49
PROVIDERS: ADMIT Internal Medicine; ATTEND Internal Medicine
PROC: 0BBJ0ZX Excision of Left Lower Lung Lobe, Open Approach, Diagnostic (ICD-10-PCS; principal; 2022-01-08)
PROC: 5A1955Z Respiratory Ventilation, Greater than 96 Consecutive Hours (ICD-10-PCS; 2022-01-08)
PROC: 0BJ08ZZ Inspection of Tracheobronchial Tree, Via Natural or Artificial Opening Endoscopic (ICD-10-PCS; 2022-01-08)
PROC: 3E0T3BZ Introduction of Anesthetic Agent into Peripheral Nerves and Plexi, Percutaneous Approach (ICD-10-PCS; 2022-01-08)
PROC: 0BH17EZ Insertion of Endotracheal Airway into Trachea, Via Natural or Artificial Opening (ICD-10-PCS; 2022-01-08)
PROC: 0BNP4ZZ Release Left Pleura, Percutaneous Endoscopic Approach (ICD-10-PCS; 2022-01-08)
PROC: 0W9B40Z Drainage of Left Pleural Cavity with Drainage Device, Percutaneous Endoscopic Approach (ICD-10-PCS; 2022-01-08)
PROC: 0BQB0ZZ Repair Left Lower Lobe Bronchus, Open Approach (ICD-10-PCS; 2022-01-08)
DX: J84.112 Idiopathic pulmonary fibrosis (principal); J96.01 Acute respiratory failure with hypoxia; J86.0 Pyothorax with fistula; C34.32 Malignant neoplasm of lower lobe, left bronchus or lung; I95.9 Hypotension, unspecified; R54 Age-related physical debility; I48.91 Unspecified atrial fibrillation; E66.9 Obesity, unspecified; I10 Essential (primary) hypertension; R59.0 Localized enlarged lymph nodes; J45.909 Unspecified asthma, uncomplicated; E87.6 Hypokalemia; Z20.822 Contact with and (suspected) exposure to COVID-19; Z85.3 Personal history of malignant neoplasm of breast; Z86.16 Personal history of COVID-19; Z87.01 Personal history of pneumonia (recurrent); Z92.21 Personal history of antineoplastic chemotherapy; Z92.3 Personal history of irradiation; Z68.36 Body mass index [BMI] 36.0-36.9, adult; Z71.3 Dietary counseling and surveillance
CPT/HCPCS: 36415; 36600; 70553; 71045; 71260; 80048; 80053; 81003; 82375; 82805; 83605; 83880; 84145; 84478; 84484; 85025; 86850; 86900; 87070; 87426; 87804; 88305; 88312; 92610; 93005; 93306; 94002; 94003; 94640; 97116; 97161; 97162; 97530; 99285; A9577; C9803; J0330; J0360; J0456; J0692; J0696; J1100; J1200; J1650; J2250; J2405; J2704; J2710; J2920; J2930; J3010; J3480; J3490; J7042; J7050; J7060; J7131; J7512; J7608; Q9967

== ENCOUNTER 2022-02-02 03:36 | Inpatient (IN) | payer MEDICAID, OTHER ==
[~2022-02-02] VITALS: Ht 162.6 cm; Wt 92.1 kg
[~2022-02-02 03:36] MED LIST: ALBU6.7H9 INH; AMLO10TA80 PO; APIX5TAB PO; ATEN-42 PO; DILT300C35 MT; FLOV44 INH; FLUT1DIS3 INH; IPRA3AMP9 NEB
[2022-02-02 04:22] LABS: BASOPHILS % 0.4 % (0.0-2.0); EOSINOPHILS % 7.6 % (0.0-5.0); HEMATOCRIT. 32.3 % (36.0-48.0); HEMOGLOBIN. 10.4 g/dL (12.0-16.0); LYMPHOCYTES % 17.6 % (20.0-50.0); MEAN CORPUSCULAR VOLUME 77.6 fL (81.0-99.0); MEAN PLATELET VOLUME 7.9 fl (7.4-10.4); MONOCYTES % 11.9 % (2.0-8.0); NEUTROPHILS % 62.5 % (40.0-76.0); PLATELET 527 x1000/uL (130-400); RED BLOOD CELL COUNT 4.16 mill/uL (4.2-5.4); RED CELL DISTRIBUTION WIDTH 16.5 % (11.6-14.6)
[2022-02-02 04:28] LABS: CHLORIDE 104 mEq/L (98-107)
[2022-02-02] MEDS ORDERED: VANCOMYCIN 1G PREMIX 200 ML IV ONE (04:45)
[2022-02-02] MEDS ORDERED: SODIUM CHLORIDE 0.9% 1,000 ML IV ONE (04:45)
[2022-02-02] MEDS ORDERED: PIPERACILLIN/TAZ 3.375G PREMIX 50 ML IV ONE (04:45)
[2022-02-02] MEDS ORDERED: VANCOMYCIN 1GM PMX (XELLIA) 200 ML IV NR (05:15)
[2022-02-02 05:47] LABS: BG BASE EXCESS 2.3 mmol/L (-2.0-2.0); BG CARBOXYHEMOGLOBIN 0.3 % (0.5-1.5); BG DEOXYHEMOGLOBIN 8.8 % (0.0-5.0); BG FRACTION INSPIRED OXYGEN 100; BG HCO3 ACT 26.8 mmol/L (22.0-26.0); BG METHEMOGLOBIN 0.3 % (0.0-1.5); BG OXYGEN SATURATION 91.1 % (92.0-98.5); BG OXYHEMOGLOBIN 90.6 % (94.0-97.0); BG PCO2 41.3 mmHg (35.0-45.0); BG PO2 61.9 mmHg (75.0-100.0); BG SAMPLE SITE LEFT RADIAL; BG TOTAL HEMOGLOBIN 12.2 g/dL (12.0-18.0); BG VENT MODE MASK - NRB
[2022-02-02] MEDS ORDERED: CEFTRIAXONE 1 G PREMIX 50 ML IV SCH (11:30)
[2022-02-02] MEDS ORDERED: IPRATROPIUM/ALBUTEROL 0.5-3(2.5)MG/3ML NEB HHN PRN (11:30)
[2022-02-02] MEDS ORDERED: AZITHROMYCIN 500MG/250ML 250 ML IV NR (11:45)
[2022-02-02 14:16] LABS: BG BASE EXCESS 0.3 mmol/L (-2.0-2.0); BG CARBOXYHEMOGLOBIN 0.2 % (0.5-1.5); BG DEOXYHEMOGLOBIN 17.2 % (0.0-5.0); BG FRACTION INSPIRED OXYGEN 50; BG HCO3 ACT 24.3 mmol/L (22.0-26.0); BG METHEMOGLOBIN 0.3 % (0.0-1.5); BG OXYGEN SATURATION 82.7 % (92.0-98.5); BG OXYHEMOGLOBIN 82.3 % (94.0-97.0); BG PCO2 37.2 mmHg (35.0-45.0); BG PH 7.433 (7.350-7.450); BG PO2 47.3 mmHg (75.0-100.0); BG SAMPLE SITE RIGHT RADIAL; BG TOTAL HEMOGLOBIN 11.6 g/dL (12.0-18.0); BG VENT MODE MASK - BIPAP
[2022-02-02 17:00] VITALS: BP 138/63
[2022-02-02 17:04] VITALS: BP 144/66
[2022-02-02 17:15] VITALS: BP 138/63
[2022-02-02] MEDS: APIXABAN 5 MG TABLET PO SCH (18:22)
[2022-02-02 18:28] VITALS: BP 149/70
[2022-02-02] MEDS ORDERED: IOHEXOL-350 100 ML BOTTLE ONE (19:36)
[2022-02-02 20:00] VITALS: BP 131/63
[2022-02-02] MEDS ORDERED: ONDANSETRON HCL 4MG/2ML INJ IV PRN (21:45)
[2022-02-02] MEDS ORDERED: MAGNESIUM/ALUMINUM HYDROXIDE/SIMETHICONE 30ML UDC PO PRN (21:45)
[2022-02-02] MEDS ORDERED: CLONIDINE 0.1MG TABLET PO PRN (21:45)
[2022-02-02] MEDS ORDERED: HYDROCODONE/ACETAMINOPHEN 5/325MG TABLET PO PRN (21:45)
[2022-02-02] MEDS: IPRATROPIUM BROMIDE (0.02%) 0.5MG/2.5ML NEB HHN SCH (21:52)
[2022-02-02] MEDS: BUDESONIDE 0.5MG/2ML NEB HHN SCH (21:53)
[2022-02-02 22:00] VITALS: BP 152/84
[2022-02-02] MEDS ORDERED: LORAZEPAM 1MG TABLET PO PRN (22:15)
[2022-02-02 23:39] LABS: TOTAL IRON BINDING CAPACITY 155 ug/dL (250-450)
[2022-02-03] VITALS (68 sets, daily range): BP systolic 86–154; BP diastolic 52–83
[2022-02-03] MEDS: IPRATROPIUM BROMIDE (0.02%) 0.5MG/2.5ML NEB HHN SCH ×5 (01:08→20:28)
[2022-02-03] MEDS ORDERED: METHYLPREDNISOLONE SOD SUCC 125 MG/2 ML VIAL IV NR (02:00)
[2022-02-03] MEDS: PROPOFOL 10MG/ML 100ML 100 ML IV PRN ×7 (02:53→22:34)
[2022-02-03] MEDS: FENTANYL 2500MCG/250ML PMX 250 ML IV PRN (03:06)
[2022-02-03] MEDS: MEROPENEM 1,000 MG in SODIUM CHLORIDE 0.9% 100 ML IV SCH ×4 (03:25→23:50)
[2022-02-03 03:34] LABS: BG CARBOXYHEMOGLOBIN 0.2 % (0.5-1.5); BG DEOXYHEMOGLOBIN 25.3 % (0.0-5.0); BG METHEMOGLOBIN 0.3 % (0.0-1.5); BG OXYGEN SATURATION 74.6 % (92.0-98.5); BG OXYHEMOGLOBIN 74.2 % (94.0-97.0); BG PCO2 53.5 mmHg (35.0-45.0); BG PH 7.304 (7.350-7.450); BG PO2 43.5 mmHg (75.0-100.0); BG TOTAL HEMOGLOBIN 11.4 g/dL (12.0-18.0)
[2022-02-03] MEDS: METHYLPREDNISOLONE SOD SUCC 125 MG/2 ML VIAL IV SCH ×4 (06:25→23:50)
[2022-02-03 06:27] LABS: BASOPHILS % 0.7 % (0.0-2.0); EOSINOPHILS % 0.2 % (0.0-5.0); HEMATOCRIT. 30.6 % (36.0-48.0); HEMOGLOBIN. 9.9 g/dL (12.0-16.0); MEAN CORPUSCULAR HEMOGLOBIN 25.2 pg (28.0-32.0); MEAN CORPUSCULAR VOLUME 77.5 fL (81.0-99.0); MEAN PLATELET VOLUME 7.8 fl (7.4-10.4); MONOCYTES % 10.1 % (2.0-8.0); PLATELET 533 x1000/uL (130-400); RED BLOOD CELL COUNT 3.95 mill/uL (4.2-5.4); RED CELL DISTRIBUTION WIDTH 16.9 % (11.6-14.6)
[2022-02-03 06:53] LABS: INR 1.3; PROTHROMBIN TIME 13.4 sec (9.6-11.0)
[2022-02-03 07:19] LABS: CHLORIDE 104 mEq/L (98-107)
[2022-02-03 07:32] LABS: PHOSPHORUS 3.2 mg/dL (2.5-4.9)
[2022-02-03] MEDS ORDERED: LIDOCAINE HCL 1% 10 MG/ML 10ML VIAL ONE (08:25)
[2022-02-03 08:30] LABS: BG BASE EXCESS -0.2 mmol/L (-2.0-2.0); BG CARBOXYHEMOGLOBIN 0.3 % (0.5-1.5); BG DEOXYHEMOGLOBIN 14.1 % (0.0-5.0); BG FRACTION INSPIRED OXYGEN 100; BG HCO3 ACT 25.7 mmol/L (22.0-26.0); BG METHEMOGLOBIN 0.3 % (0.0-1.5); BG OXYGEN SATURATION 85.8 % (92.0-98.5); BG OXYHEMOGLOBIN 85.3 % (94.0-97.0); BG PH 7.347 (7.350-7.450); BG PO2 54.3 mmHg (75.0-100.0); BG SAMPLE SITE LEFT RADIAL; BG TOTAL HEMOGLOBIN 10.4 g/dL (12.0-18.0); BG VENT MODE VENT - AC
[2022-02-03] MEDS: BUDESONIDE 0.5MG/2ML NEB HHN SCH ×2 (08:43→20:27)
[2022-02-03] MEDS ORDERED: CEFTRIAXONE 1,000 MG in DEXTROSE 5% WATER 50 ML IV SCH (09:00)
[2022-02-03] MEDS: APIXABAN 5 MG TABLET PO SCH ×2 (09:26→18:32)
[2022-02-03] MEDS ORDERED: AZITHROMYCIN 500 MG in DEXT 5% WATER 250 ML IV SCH (10:00)
[2022-02-03] MEDS: PANTOPRAZOLE SODIUM 40 MG/VIAL IV SCH (10:29)
[2022-02-03 12:48] LABS: CLARITY URINE CLEAR (CLEAR); COLOR URINE DARK YELLOW (YELLOW); KETONES URINE TRACE (NEGATIVE); LEUKOCYTE ESTERASE URINE NEGATIVE (NEGATIVE); NITRITE URINE NEGATIVE (NEGATIVE); OCCULT BLOOD URINE NEGATIVE (NEGATIVE); PROTEIN URINE 2+ (NEGATIVE)
[2022-02-03] MEDS ORDERED: PROPOFOL 10MG/ML 100ML 100 ML IV PRN (14:00)
[2022-02-03] MEDS ORDERED: NALOXONE HCL 0.4MG/ML VIAL IV PRN (15:30)
[2022-02-03] MEDS: IRON SUCROSE COMPLEX 100 MG/5 ML ML IV SCH (18:32)
[2022-02-03] MEDS: NOREPINEPHRINE 32 MG in DEXT 5% WATER 218 ML IV PRN (21:07)
[2022-02-04] VITALS (84 sets, daily range): BP systolic 90–147; BP diastolic 64–89
[2022-02-04] MEDS: IPRATROPIUM BROMIDE (0.02%) 0.5MG/2.5ML NEB HHN SCH ×4 (00:22→21:05)
[2022-02-04] MEDS: ACETAMINOPHEN 325MG TABLET PO PRN (02:20)
[2022-02-04] MEDS: PROPOFOL 10MG/ML 100ML 100 ML IV PRN ×7 (02:23→21:28)
[2022-02-04] MEDS: METHYLPREDNISOLONE SOD SUCC 125 MG/2 ML VIAL IV SCH ×3 (05:59→17:58)
[2022-02-04 06:20] LABS: HEMATOCRIT. 29.8 % (36.0-48.0); HEMOGLOBIN. 9.5 g/dL (12.0-16.0); MEAN CORPUSCULAR HEMOGLOBIN 24.9 pg (28.0-32.0); MEAN CORPUSCULAR VOLUME 78.2 fL (81.0-99.0); PLATELET 613 x1000/uL (130-400); RED BLOOD CELL COUNT 3.81 mill/uL (4.2-5.4); RED CELL DISTRIBUTION WIDTH 17.2 % (11.6-14.6)
[2022-02-04 06:31] LABS: CHLORIDE 103 mEq/L (98-107)
[2022-02-04] MEDS: FENTANYL 2500MCG/250ML PMX 250 ML IV PRN ×2 (06:47→21:57)
[2022-02-04] MEDS: APIXABAN 5 MG TABLET PO SCH ×2 (08:19→16:54)
[2022-02-04] MEDS: MEROPENEM 1,000 MG in SODIUM CHLORIDE 0.9% 100 ML IV SCH ×2 (08:19→14:30)
[2022-02-04] MEDS: PANTOPRAZOLE SODIUM 40 MG/VIAL IV SCH (08:19)
[2022-02-04 08:28] LABS: BG BASE EXCESS -3.2 mmol/L (-2.0-2.0); BG CARBOXYHEMOGLOBIN 0.3 % (0.5-1.5); BG DEOXYHEMOGLOBIN 17.2 % (0.0-5.0); BG FRACTION INSPIRED OXYGEN 100; BG HCO3 ACT 23.5 mmol/L (22.0-26.0); BG METHEMOGLOBIN 0.2 % (0.0-1.5); BG OXYGEN SATURATION 82.7 % (92.0-98.5); BG OXYHEMOGLOBIN 82.3 % (94.0-97.0); BG PCO2 49.5 mmHg (35.0-45.0); BG PH 7.294 (7.350-7.450); BG PO2 52.3 mmHg (75.0-100.0); BG SAMPLE SITE RIGHT RADIAL; BG TOTAL HEMOGLOBIN 10.7 g/dL (12.0-18.0); BG VENT MODE VENT - AC
[2022-02-04] MEDS: BUDESONIDE 0.5MG/2ML NEB HHN SCH ×2 (08:45→21:05)
[2022-02-04] MEDS: AZITHROMYCIN 500 MG in DEXT 5% WATER 250 ML IV SCH (08:58)
[2022-02-04] MEDS ORDERED: VECURONIUM BROMIDE 10 MG/VIAL IV NR (10:00)
[2022-02-04] MEDS: MIDAZOLAM 100MG/100ML PMX 100 ML IV PRN (10:54)
[2022-02-04 16:18] LABS: PLATELET ESTIMATE INCREASED
[2022-02-04] MEDS: IRON SUCROSE COMPLEX 100 MG/5 ML ML IV SCH (16:54)
[2022-02-04] MEDS: AMIODARONE HCL 200 MG TABLET PO SCH (17:57)
[2022-02-05] VITALS (71 sets, daily range): BP systolic 84–131; BP diastolic 44–82
[2022-02-05] MEDS: IPRATROPIUM BROMIDE (0.02%) 0.5MG/2.5ML NEB HHN SCH ×3 (01:08→08:21)
[2022-02-05] MEDS: MEROPENEM 1,000 MG in SODIUM CHLORIDE 0.9% 100 ML IV SCH ×4 (01:16→23:03)
[2022-02-05] MEDS: METHYLPREDNISOLONE SOD SUCC 125 MG/2 ML VIAL IV SCH ×5 (01:16→23:04)
[2022-02-05] MEDS: PROPOFOL 10MG/ML 100ML 100 ML IV PRN ×3 (02:08→10:31)
[2022-02-05] MEDS: MIDAZOLAM 100MG/100ML PMX 100 ML IV PRN (04:00)
[2022-02-05 05:46] LABS: HEMATOCRIT. 28.9 % (36.0-48.0); HEMOGLOBIN. 9.1 g/dL (12.0-16.0); MEAN CORPUSCULAR HEMOGLOBIN 24.6 pg (28.0-32.0); MEAN PLATELET VOLUME 7.6 fl (7.4-10.4); PLATELET 609 x1000/uL (130-400); RED CELL DISTRIBUTION WIDTH 17.1 % (11.6-14.6)
[2022-02-05 06:05] LABS: CHLORIDE 102 mEq/L (98-107)
[2022-02-05 06:17] LABS: PHOSPHORUS 3.4 mg/dL (2.5-4.9)
[2022-02-05 08:07] LABS: BG BASE EXCESS 1.5 mmol/L (-2.0-2.0); BG CARBOXYHEMOGLOBIN 0.3 % (0.5-1.5); BG DEOXYHEMOGLOBIN 4.6 % (0.0-5.0); BG FRACTION INSPIRED OXYGEN 80; BG HCO3 ACT 28.4 mmol/L (22.0-26.0); BG METHEMOGLOBIN 0.1 % (0.0-1.5); BG OXYGEN SATURATION 95.4 % (92.0-98.5); BG PCO2 57.8 mmHg (35.0-45.0); BG PO2 84.2 mmHg (75.0-100.0); BG SAMPLE SITE RIGHT RADIAL; BG TOTAL HEMOGLOBIN 9.6 g/dL (12.0-18.0); BG VENT MODE PRVC
[2022-02-05] MEDS: BUDESONIDE 0.5MG/2ML NEB HHN SCH ×2 (08:21→20:25)
[2022-02-05] MEDS: AMIODARONE HCL 200 MG TABLET PO SCH (08:46)
[2022-02-05] MEDS: PANTOPRAZOLE SODIUM 40 MG/VIAL IV SCH (08:46)
[2022-02-05] MEDS: ENOXAPARIN 30MG/0.3ML SYR SUBCUT SCH ×2 (08:47→21:54)
[2022-02-05] MEDS: AZITHROMYCIN 500 MG in DEXT 5% WATER 250 ML IV SCH (08:48)
[2022-02-05] MEDS ORDERED: PROPOFOL 10MG/ML 100ML 100 ML IV PRN (09:00)
[2022-02-05] MEDS: IPRATROPIUM/ALBUTEROL 0.5-3(2.5)MG/3ML NEB HHN SCH ×3 (12:51→20:25)
[2022-02-05] MEDS: IRON SUCROSE COMPLEX 100 MG/5 ML ML IV SCH (16:14)
[2022-02-05] MEDS: ACETAMINOPHEN 325MG TABLET PO PRN ×2 (16:45→21:54)
[2022-02-05] MEDS: FENTANYL 2500MCG/250ML PMX 250 ML IV PRN (18:13)
[2022-02-05 19:10] LABS: NUCLEATED RED BLOOD CELLS 2 /100 WBC; PLATELET ESTIMATE INCREASED
[2022-02-06] VITALS (92 sets, daily range): BP systolic 90–164; BP diastolic 52–89
[2022-02-06] MEDS: IPRATROPIUM/ALBUTEROL 0.5-3(2.5)MG/3ML NEB HHN SCH ×6 (00:15→20:44)
[2022-02-06] MEDS: MIDAZOLAM 100MG/100ML PMX 100 ML IV PRN (04:44)
[2022-02-06] MEDS: NOREPINEPHRINE 32 MG in DEXT 5% WATER 218 ML IV PRN (04:45)
[2022-02-06] MEDS: METHYLPREDNISOLONE SOD SUCC 125 MG/2 ML VIAL IV SCH ×3 (05:45→17:00)
[2022-02-06 06:38] LABS: HEMATOCRIT. 28.4 % (36.0-48.0); HEMOGLOBIN. 8.9 g/dL (12.0-16.0); MEAN CORPUSCULAR HEMOGLOBIN 24.4 pg (28.0-32.0); MEAN PLATELET VOLUME 8.1 fl (7.4-10.4); PLATELET 510 x1000/uL (130-400); RED BLOOD CELL COUNT 3.64 mill/uL (4.2-5.4)
[2022-02-06 06:58] LABS: CHLORIDE 104 mEq/L (98-107)
[2022-02-06] MEDS: MEROPENEM 1,000 MG in SODIUM CHLORIDE 0.9% 100 ML IV SCH ×3 (08:45→23:30)
[2022-02-06] MEDS: AZITHROMYCIN 500 MG in DEXT 5% WATER 250 ML IV SCH (08:47)
[2022-02-06] MEDS: AMIODARONE HCL 200 MG TABLET PO SCH (08:47)
[2022-02-06] MEDS: PANTOPRAZOLE SODIUM 40 MG/VIAL IV SCH (08:47)
[2022-02-06] MEDS: ACETAMINOPHEN 325MG TABLET PO PRN ×2 (08:47→17:00)
[2022-02-06] MEDS: ENOXAPARIN 30MG/0.3ML SYR SUBCUT SCH ×2 (08:47→20:26)
[2022-02-06] MEDS: BUDESONIDE 0.5MG/2ML NEB HHN SCH ×2 (08:48→20:43)
[2022-02-06 09:12] LABS: BG BASE EXCESS 3.9 mmol/L (-2.0-2.0); BG CARBOXYHEMOGLOBIN 0.3 % (0.5-1.5); BG DEOXYHEMOGLOBIN 7.6 % (0.0-5.0); BG FRACTION INSPIRED OXYGEN 90; BG HCO3 ACT 29.2 mmol/L (22.0-26.0); BG METHEMOGLOBIN 0.3 % (0.0-1.5); BG OXYGEN SATURATION 92.4 % (92.0-98.5); BG OXYHEMOGLOBIN 91.8 % (94.0-97.0); BG PCO2 47.3 mmHg (35.0-45.0); BG PH 7.408 (7.350-7.450); BG PO2 64.9 mmHg (75.0-100.0); BG SAMPLE SITE RIGHT RADIAL; BG TOTAL HEMOGLOBIN 9.9 g/dL (12.0-18.0); BG VENT MODE VENT - PRVC
[2022-02-06] MEDS ORDERED: SODIUM POLYSTYRENE SULFONATE 15 G/60 ML BOT PO NR (11:00)
[2022-02-06] MEDS: FENTANYL 2500MCG/250ML PMX 250 ML IV PRN (18:01)
[2022-02-06 21:24] LABS: NUCLEATED RED BLOOD CELLS 5 /100 WBC
[2022-02-06 21:25] LABS: PLATELET ESTIMATE INCREASED
[2022-02-07] VITALS (96 sets, daily range): BP systolic 87–128; BP diastolic 48–71
[2022-02-07] MEDS: IPRATROPIUM/ALBUTEROL 0.5-3(2.5)MG/3ML NEB HHN SCH ×6 (00:23→19:54)
[2022-02-07 05:36] LABS: HEMATOCRIT. 29.4 % (36.0-48.0); HEMOGLOBIN. 9.2 g/dL (12.0-16.0); MEAN CORPUSCULAR HEMOGLOBIN 24.5 pg (28.0-32.0); MEAN CORPUSCULAR VOLUME 78.8 fL (81.0-99.0); MEAN PLATELET VOLUME 8.5 fl (7.4-10.4); PLATELET 486 x1000/uL (130-400); RED BLOOD CELL COUNT 3.74 mill/uL (4.2-5.4); RED CELL DISTRIBUTION WIDTH 16.7 % (11.6-14.6)
[2022-02-07 05:39] LABS: CHLORIDE 107 mEq/L (98-107)
[2022-02-07] MEDS: METHYLPREDNISOLONE SOD SUCC 125 MG/2 ML VIAL IV SCH ×4 (06:00→17:40)
[2022-02-07] MEDS: MIDAZOLAM 100MG/100ML PMX 100 ML IV PRN (06:58)
[2022-02-07] MEDS: MEROPENEM 1,000 MG in SODIUM CHLORIDE 0.9% 100 ML IV SCH ×3 (08:29→22:47)
[2022-02-07] MEDS: BUDESONIDE 0.5MG/2ML NEB HHN SCH ×2 (08:47→19:54)
[2022-02-07 09:06] LABS: NUCLEATED RED BLOOD CELLS 17 /100 WBC; PLATELET ESTIMATE INCREASED
[2022-02-07] MEDS: AMIODARONE HCL 200 MG TABLET PO SCH (09:25)
[2022-02-07] MEDS: PANTOPRAZOLE SODIUM 40 MG/VIAL IV SCH (09:25)
[2022-02-07] MEDS: ENOXAPARIN 30MG/0.3ML SYR SUBCUT SCH ×2 (09:26→21:25)
[2022-02-07] MEDS ORDERED: DEXTROSE 50% WATER 50ML SYRINGE IV PRN (10:30)
[2022-02-07] MEDS ORDERED: BISACODYL 10MG SUPP PR NR (10:45)
[2022-02-07] MEDS: BLOOD SUGAR DIAGNOSTIC STRIP TEST SCH ×3 (12:44→21:00)
[2022-02-07] MEDS: MIDODRINE HCL 5MG TABLET PO SCH ×2 (12:51→17:40)
[2022-02-07] MEDS: INSULIN LISPRO 100 UNITS/ML SUBCUT SCH ×3 (12:52→21:34)
[2022-02-07] MEDS: ACETAMINOPHEN 325MG TABLET PO PRN (13:18)
[2022-02-07] MEDS: FENTANYL 2500MCG/250ML PMX 250 ML IV PRN (15:21)
[2022-02-07] MEDS ORDERED: LACTULOSE 20G/30ML UDC PO NR (17:00)
[2022-02-08] VITALS (95 sets, daily range): BP systolic 86–141; BP diastolic 49–76
[2022-02-08] MEDS: METHYLPREDNISOLONE SOD SUCC 125 MG/2 ML VIAL IV SCH ×3 (00:02→12:06)
[2022-02-08] MEDS ORDERED: FENTANYL 2500MCG/250ML PMX 250 ML IV PRN (04:00)
[2022-02-08] MEDS: IPRATROPIUM/ALBUTEROL 0.5-3(2.5)MG/3ML NEB HHN SCH ×6 (04:00→20:59)
[2022-02-08 05:57] LABS: HEMATOCRIT. 31.8 % (36.0-48.0); HEMOGLOBIN. 9.5 g/dL (12.0-16.0); MEAN CORPUSCULAR VOLUME 80.6 fL (81.0-99.0); MEAN PLATELET VOLUME 9.3 fl (7.4-10.4); PLATELET 395 x1000/uL (130-400); RED BLOOD CELL COUNT 3.95 mill/uL (4.2-5.4); RED CELL DISTRIBUTION WIDTH 17.6 % (11.6-14.6)
[2022-02-08 06:14] LABS: CHLORIDE 110 mEq/L (98-107)
[2022-02-08] MEDS: BLOOD SUGAR DIAGNOSTIC STRIP TEST SCH ×4 (06:43→21:11)
[2022-02-08] MEDS: INSULIN LISPRO 100 UNITS/ML SUBCUT SCH ×4 (06:47→21:11)
[2022-02-08] MEDS ORDERED: SODIUM POLYSTYRENE SULFONATE 15 G/60 ML BOT PO SCH (07:00)
[2022-02-08] MEDS ORDERED: INSULIN REGULAR (HUMULIN R) 300UNITS/3ML VIAL IV SCH (08:00)
[2022-02-08] MEDS ORDERED: DEXTROSE 50% WATER 50ML SYRINGE IV SCH (08:00)
[2022-02-08] MEDS ORDERED: SODIUM BICARBONATE 8.4% 1 MEQ/ML 50ML SYR IV SCH (08:00)
[2022-02-08] MEDS: ENOXAPARIN 30MG/0.3ML SYR SUBCUT SCH ×2 (08:07→21:12)
[2022-02-08] MEDS: MEROPENEM 1,000 MG in SODIUM CHLORIDE 0.9% 100 ML IV SCH ×2 (08:07→15:33)
[2022-02-08] MEDS: MIDODRINE HCL 5MG TABLET PO SCH ×3 (08:09→17:47)
[2022-02-08] MEDS: AMIODARONE HCL 200 MG TABLET PO SCH (08:09)
[2022-02-08] MEDS: PANTOPRAZOLE SODIUM 40 MG/VIAL IV SCH (08:09)
[2022-02-08] MEDS: BUDESONIDE 0.5MG/2ML NEB HHN SCH ×2 (08:43→20:59)
[2022-02-08 09:07] LABS: NUCLEATED RED BLOOD CELLS 13 /100 WBC; PLATELET ESTIMATE NORMAL
[2022-02-08] MEDS ORDERED: CALCIUM GLUCONATE 1GM PREMIX 50 ML IV SCH (10:00)
[2022-02-08] MEDS: ACETAMINOPHEN 325MG TABLET PO PRN (12:07)
[2022-02-08] MEDS: INSULIN GLARGINE 100 UNITS/ML SUBCUT SCH ×2 (12:49→21:10)
[2022-02-08] MEDS: MIDAZOLAM 100MG/100ML PMX 100 ML IV PRN (17:49)
[2022-02-08] MEDS: METHYLPREDNISOLONE SOD SUCC 40 MG/ML VIAL IV SCH (21:30)
[2022-02-09] VITALS (65 sets, daily range): BP systolic 78–151; BP diastolic 49–93
[2022-02-09] MEDS: MEROPENEM 1,000 MG in SODIUM CHLORIDE 0.9% 100 ML IV SCH ×3 (00:02→14:48)
[2022-02-09] MEDS: IPRATROPIUM/ALBUTEROL 0.5-3(2.5)MG/3ML NEB HHN SCH ×3 (00:48→07:51)
[2022-02-09] MEDS: BLOOD SUGAR DIAGNOSTIC STRIP TEST SCH ×2 (07:35→12:57)
[2022-02-09] MEDS: BUDESONIDE 0.5MG/2ML NEB HHN SCH (07:50)
[2022-02-09 08:29] LABS: BG BASE EXCESS 3.4 mmol/L (-2.0-2.0); BG CARBOXYHEMOGLOBIN 0.3 % (0.5-1.5); BG DEOXYHEMOGLOBIN 10.6 % (0.0-5.0); BG FRACTION INSPIRED OXYGEN 90; BG HCO3 ACT 29.5 mmol/L (22.0-26.0); BG METHEMOGLOBIN 0.2 % (0.0-1.5); BG OXYGEN SATURATION 89.3 % (92.0-98.5); BG OXYHEMOGLOBIN 88.9 % (94.0-97.0); BG PCO2 52.4 mmHg (35.0-45.0); BG PH 7.369 (7.350-7.450); BG PO2 60.1 mmHg (75.0-100.0); BG SAMPLE SITE LEFT RADIAL; BG TOTAL HEMOGLOBIN 10.7 g/dL (12.0-18.0); BG VENT MODE VENT - AC
[2022-02-09 08:41] LABS: HEMOGLOBIN. 10.1 g/dL (12.0-16.0); MEAN CORPUSCULAR HEMOGLOBIN 25.4 pg (28.0-32.0); MEAN CORPUSCULAR VOLUME 80.2 fL (81.0-99.0); MEAN PLATELET VOLUME 10.2 fl (7.4-10.4); PLATELET 255 x1000/uL (130-400); RED BLOOD CELL COUNT 3.99 mill/uL (4.2-5.4); RED CELL DISTRIBUTION WIDTH 17.5 % (11.6-14.6)
[2022-02-09 08:48] LABS: CHLORIDE 112 mEq/L (98-107)
[2022-02-09] MEDS: ENOXAPARIN 30MG/0.3ML SYR SUBCUT SCH (09:10)
[2022-02-09] MEDS: METHYLPREDNISOLONE SOD SUCC 40 MG/ML VIAL IV SCH (09:10)
[2022-02-09] MEDS: PANTOPRAZOLE SODIUM 40 MG/VIAL IV SCH (09:10)
[2022-02-09] MEDS: AMIODARONE HCL 200 MG TABLET PO SCH (09:11)
[2022-02-09] MEDS: MIDODRINE HCL 5MG TABLET PO SCH ×2 (09:11→14:46)
[2022-02-09] MEDS: INSULIN LISPRO 100 UNITS/ML SUBCUT SCH ×2 (09:11→13:20)
[2022-02-09] MEDS: INSULIN GLARGINE 100 UNITS/ML SUBCUT SCH (09:12)
[2022-02-09] MEDS ORDERED: INSULIN REGULAR (HUMULIN R) 300UNITS/3ML VIAL IV NR (09:30)
[2022-02-09] MEDS ORDERED: SODIUM BICARBONATE 8.4% 1 MEQ/ML 50ML SYR IV NR (09:30)
[2022-02-09] MEDS ORDERED: CALCIUM GLUCONATE 1GM PREMIX 50 ML IV NR (09:30)
[2022-02-09] MEDS ORDERED: DEXTROSE 50% WATER 50ML SYRINGE IV NR (09:30)
[2022-02-09] MEDS ORDERED: DEXTROSE 5% WATER 1,000 ML IV SCH (11:00)
[2022-02-09] MEDS ORDERED: DIGOXIN 500MCG/2ML AMP IV SCH (11:00)
[2022-02-09] MEDS ORDERED: DIGOXIN 500MCG/2ML AMP IV NR (11:15)
[2022-02-09] MEDS ORDERED: DILTIAZEM HCL 5MG/ML 5ML VIAL IV PRN (11:30)
[2022-02-09 11:51] LABS: NUCLEATED RED BLOOD CELLS 13 /100 WBC; PLATELET ESTIMATE NORMAL
[2022-02-09] MEDS ORDERED: PHENYLEPHRINE 100 MG in DEXT 5% WATER 240 ML IV PRN (12:15)
[2022-02-09] MEDS ORDERED: IPRATROPIUM BROMIDE (0.02%) 0.5MG/2.5ML NEB HHN SCH (12:30)
[2022-02-09] MEDS ORDERED: AMIODARONE HCL 900 MG in DEXT 5% WATER 482 ML IV PRN (14:00)
[2022-02-09] MEDS ORDERED: AMIODARONE HCL 150 MG in DEXT 5% WATER 100 ML IV NR (14:00)
[2022-02-09] MEDS ORDERED: MORPHINE SULFATE 2 MG/ML CPJ (NOT FOR IM USE) IV PRN (15:00)
[2022-02-09] MEDS ORDERED: MORPHINE SULFATE 250 MG in DEXT 5% WATER 225 ML IV PRN (15:15)
[2022-02-09] MEDS ORDERED: INSULIN GLARGINE 100 UNITS/ML SUBCUT SCH (22:00)
== END 2022-02-09 20:40 | DRG 720 ==
LOC: ER 03:36 → ENRESERV 12:18 → EDBEDREQSVC 14:34 → ENRESERV 15:43 → 5EST 16:21 → CVICU 02-03 02:47
PROVIDERS: ADMIT Internal Medicine; ATTEND Internal Medicine
PROC: 5A1955Z Respiratory Ventilation, Greater than 96 Consecutive Hours (ICD-10-PCS; principal; 2022-02-03)
PROC: 0BH17EZ Insertion of Endotracheal Airway into Trachea, Via Natural or Artificial Opening (ICD-10-PCS; 2022-02-03)
PROC: 02HV33Z Insertion of Infusion Device into Superior Vena Cava, Percutaneous Approach (ICD-10-PCS; 2022-02-03)
PROC: B548ZZA Ultrasonography of Superior Vena Cava, Guidance (ICD-10-PCS; 2022-02-03)
DX: A41.9 Sepsis, unspecified organism (principal); J96.01 Acute respiratory failure with hypoxia; R65.21 Severe sepsis with septic shock; J18.9 Pneumonia, unspecified organism; N17.9 Acute kidney failure, unspecified; I27.20 Pulmonary hypertension, unspecified; D68.59 Other primary thrombophilia; Z66 Do not resuscitate; I48.0 Paroxysmal atrial fibrillation; I10 Essential (primary) hypertension; C34.90 Malignant neoplasm of unspecified part of unspecified bronchus or lung; R77.8 Other specified abnormalities of plasma proteins; E87.6 Hypokalemia; E87.5 Hyperkalemia; Z20.822 Contact with and (suspected) exposure to COVID-19; Z79.01 Long term (current) use of anticoagulants; Z99.81 Dependence on supplemental oxygen; Z92.3 Personal history of irradiation; Z85.3 Personal history of malignant neoplasm of breast; R79.89 Other specified abnormal findings of blood chemistry
CPT/HCPCS: 31500; 36415; 36573; 36600; 71045; 71275; 80048; 80053; 80076; 81003; 82375; 82805; 82962; 83036; 83540; 83550; 83605; 83735; 83880; 84100; 84145; 84478; 84484; 85025; 85379; 87070; 87426; 93005; 93306; 93970; 94002; 94003; 94640; 94660; 99291; C1725; C9113; J0282; J0456; J0610; J0696; J1160; J1650; J1815; J2185; J2250; J2370; J2543; J2704; J2920; J2930; J3010; J3370; J3490; J7030; J7050; J7060; J7626; Q9967; A4315